=== PATIENT | male | born 1935 | race Caucasian/White ===

== ENCOUNTER 2018-06-09 13:24 | Observation (INO) ==
--- NOTE | 2018-06-09 13:37 | ED ---
HPI General Chief Complaint: Chest Pain Stated Complaint: Chest Pain Complaint Time Seen by Provider: 06/09/18 13:34 Source: patient Mode of arrival: ambulatory Limitations: no limitations History of Present Illness HPI narrative: Primary care physician at the [place] [employer] Dr. Angela Past medical history significant for pacemaker, atrial fibrillation on Coumadin , hip replacement Patient complains of intermittent chest pain, described as a pressure substernal nonradiating, currently at 3 out of 10, last episode has been going on for 45 minutes prior to arrival. MD complaint: Reports chest pain STEMI Alert: No Onset (ago): minute(s) (45) Duration: intermittent Onset: during rest Pain location: Reports substernal Severity: mild Severity scale (1-10): 3 Quality: Reports tightness Pain radiation: Reports none Relieving factors: nothing Exacerbating factors: nothing Treatments prior to arrival chest pain: Reports none Related Data Home Medications Medication Instructions Recorded Confirmed capsaicin 1 applic TOPICAL TID 06/09/18 06/09/18 furosemide 20 mg PO DAILY 06/09/18 06/09/18 isosorbide dinitrate 30 mg PO TID 06/09/18 06/09/18 levothyroxine 50 mcg PO DAILY 06/09/18 06/09/18 lovastatin 40 mg PO DAILY 06/09/18 06/09/18 metoprolol tartrate 50 mg PO BID 06/09/18 06/09/18 niacin [Slo-Niacin] 500 mg PO QAM 06/09/18 06/09/18 nifedipine 30 mg PO DAILY 06/09/18 06/09/18 nitroglycerin 0.4 mg SUBLINGUAL Q5-15M PRN 06/09/18 06/09/18 warfarin 4 mg PO MOWEFR 06/09/18 06/09/18 warfarin 6 mg PO QTUTHSASU 06/09/18 06/09/18 Allergies Allergy/AdvReac Type Severity Reaction Status Date / Time No Known Allergies Allergy Verified 06/09/18 13:32 Review of Systems ROS: all other systems reviewed are negative PMFSH History History Provided By: Family Member Medical History Medical History Atrial fibrillation (Acute) Chest pain (Acute) Pacemaker (Acute) Surgical History Surgical History History of hip replacement (Acute) Social History Social History Substance History: No History of Abuse Second Hand Smoke Exposure: No Smoking Status: Never smoker How Often Do You Have a Drink Containing Alcohol: 2 to 4 times a month Recent Travel in [facility] within the Last 8 Weeks: No Recent Out of Country Travel within the Last 8 Weeks: No Exam Narrative Exam Narrative: GENERAL: Well-nourished, well-developed patient in no apparent distress. SKIN: Warm and dry. HEAD: Atraumatic. Normocephalic. EYES: Pupils equal and round. No scleral icterus. No injection or drainage. ENT: No nasal bleeding or discharge. Mucous membranes pink and moist. NECK: Trachea midline. No JVD. CARDIOVASCULAR: Regular rate and rhythm. no rubs or gallops RESPIRATORY: No accessory muscle use. Clear to auscultation. Breath sounds equal bilaterally. GASTROINTESTINAL: Abdomen soft, non-tender, nondistended. No rebound or guarding MUSCULOSKELETAL: Extremities without clubbing, cyanosis, or edema. No obvious deformities. NEUROLOGICAL: Awake and alert. No obvious cranial nerve deficits. Motor grossly within normal limits. Five out of 5 muscle strength in the arms and legs. Normal speech. PSYCHIATRIC: Appropriate mood and affect; insight and judgment normal. Course Initial Documented Vital Signs Temperature 97.2 F L 06/09/18 13:28 Pulse Rate 68 06/09/18 13:28 Respiratory Rate 16 06/09/18 13:28 Blood Pressure 135/68 06/09/18 13:28 Pulse Oximetry 98 06/09/18 13:28 Last Documented Vital Signs Temperature 97.2 F L 06/09/18 13:28 Pulse Rate 68 06/09/18 13:28 Respiratory Rate 16 06/09/18 13:28 Blood Pressure 135/68 06/09/18 13:28 Pulse Oximetry 96 06/09/18 13:35 Medical Decision Making MDM Narrative Medical decision making narrative: No leukocytosis no anemia no left shift INR 2.9 adequately anticoagulated Normal electrolytes. Normal kidney liver or pancreatic functions Chest x-ray read by radiologist as no acute cardiopulmonary abnormalities identified. There is mild atelectasis at the lung bases Medical Screen Exam Complete: Yes Emergency Medical Condition: Yes Medical Records Medical records reviewed: Yes I reviewed the patient's medical records. Lab Data Lab results reviewed: Yes I reviewed the patient's lab results. Result diagrams: 06/09/18 13:50 06/09/18 13:50 Lab Results 06/09/18 06/09/18 06/09/18 Range/Units 13:50 13:50 13:50 WBC 8.9 (4.0-11.0) th/mm3 RBC 4.56 (4.50-5.90) mil/mm3 Hgb 15.5 (13.0-17.0) gm/dL Hct 44.2 (39.0-51.0) % MCV 96.9 (80.0-100.0) fL MCH 33.9 (27.0-34.0) pg MCHC 35.0 (32.0-36.0) % RDW 15.4 (11.6-17.2) % Plt Count 142 L (150-450) th/mm3 MPV 11.2 H (7.0-11.0) fL Neut % (Auto) 66.1 (16.0-70.0) % Lymph % (Auto) 21.2 (9.0-44.0) % [place] % (Auto) 10.4 H (0.0-8.0) % Eos % (Auto) 1.5 (0.0-4.0) % Baso % (Auto) 0.8 (0.0-2.0) % Neut # (Auto) 5.9 (1.8-7.7) th/mm3 Lymph # (Auto) 1.9 (1.0-4.8) th/mm3 [place] # (Auto) 0.9 (0.0-0.9) th/mm3 Eos # (Auto) 0.1 (0.0-0.4) th/mm3 Baso # (Auto) 0.1 (0.0-0.2) th/mm3 WBC Differential . Differential Comment Auto diff final PT 29.4 H (9.8-11.6) sec INR 2.9 Ratio APTT 42.6 H (23.4-31.7) sec Sodium 139 (136-145) meq/L Potassium 4.4 (3.5-5.1) meq/L Chloride 104 (98-107) meq/L Carbon Dioxide 27.9 (21.0-32.0) meq/L Anion Gap 7 (5-15) meq/L BUN 10 (7-18) mg/dL Creatinine 0.81 (0.60-1.30) mg/dL Estimated GFR Greater than 89 (>89) mL/min Random Glucose 101 (74-106) mg/dL Calcium 8.3 L (8.5-10.1) mg/dL Total Bilirubin 0.7 (0.2-1.0) mg/dL AST 35 (15-37) U/L ALT 28 (12-78) U/L Alkaline Phosphatase 74 (45-117) U/L Total Creatine Kinase 131 (39-308) U/L CK-MB (CK-2) 2.0 (0.5-3.6) ng/mL Troponin I Less than 0.02 L (0.02-0.05) ng/mL Total Protein 7.4 (6.4-8.2) g/dL Albumin 3.9 (3.4-5.0) g/dL Lipase 198 (73-393) U/L Imaging Data Attestation: I personally reviewed and interpreted this imaging study as follows : Radiologist's impression: Chest X-Ray 06/09/18 13:35 CONCLUSION: No acute cardiopulmonary abnormality is identified. There is mild atelectasis at the lung bases. ECG Data EKG Prior to Arrival: No Attestation: I personally reviewed and interpreted this ECG as follows: Prior ECG tracings: not available for review Interpretation: Paced rhythm at 63 bpm, right bundle and left bundle branch block type pattern however this may be secondary to pacemaker. No concordance noted. Discharge Plan Discharge Disposition Patient Disposition: ED Admit(ED Internal Use Only) Discharge Condition Condition: Stable Discharge Details Diagnosis: Chest pain, rule out acute myocardial infarction Physicians Team ED Provider: Chip Leyva Primary Care Provider: [facility] /Orders / Referrals /Forms Prescriptions: No Action lovastatin 40 mg Tablet 40 mg PO DAILY RF: 0 nifedipine 30 mg Tablet Extended Release 30 mg PO DAILY RF: 0 warfarin 4 mg Tablet 4 mg PO MOWEFR RF: 0 isosorbide dinitrate 30 mg Tablet 30 mg PO TID RF: 0 warfarin 6 mg Tablet 6 mg PO QTUTHSASU RF: 0 metoprolol tartrate 50 mg Tablet 50 mg PO BID RF: 0 nitroglycerin 0.4 mg Tablet, Sublingual 0.4 mg SUBLINGUAL Q5-15M PRN (Reason: Pain) RF: 0 capsaicin 0.025 % Cream 1 applic TOPICAL TID RF: 0 furosemide 20 mg Tablet 20 mg PO DAILY RF: 0 levothyroxine 50 mcg Capsule 50 mcg PO DAILY RF: 0 niacin [Slo-Niacin] 500 mg Tablet Extended Release 500 mg PO QAM RF: 0 Status ED Status: With Doctor
[2018-06-09 14:05] LABS: Baso # (Auto) 0.1 th/mm3 (0.0-0.2); Baso % (Auto) 0.8 % (0.0-2.0); Eos # (Auto) 0.1 th/mm3 (0.0-0.4); Eos % (Auto) 1.5 % (0.0-4.0); Hematocrit 44.2 % (39.0-51.0); Hemoglobin 15.5 gm/dL (13.0-17.0); Lymph # (Auto) 1.9 th/mm3 (1.0-4.8); Lymph % (Auto) 21.2 % (9.0-44.0); Mean Corpuscular Hemoglobin 33.9 pg (27.0-34.0); Mean Corpuscular Volume 96.9 fL (80.0-100.0); Mean Platelet Volume 11.2 fL (7.0-11.0); Mono # (Auto) 0.9 th/mm3 (0.0-0.9); Mono % (Auto) 10.4 % (0.0-8.0); Neut # (Auto) 5.9 th/mm3 (1.8-7.7); Neut % (Auto) 66.1 % (16.0-70.0); Platelet Count 142 th/mm3 (150-450); Red Blood Count 4.56 mil/mm3 (4.50-5.90); Red Cell Distribution Width 15.4 % (11.6-17.2); White Blood Count 8.9 th/mm3 (4.0-11.0)
--- NOTE | 2018-06-09 14:10 | XR ---
EXAM DATE: 06/09/2018 2:06 PM EST AGE/SEX: 82 years / Male INDICATIONS: Chest pain. CLINICAL DATA: This is the patient's initial encounter. Patient reports that signs and symptoms have been present for 1 day and indicates a pain score of 3/10. MEDICAL/SURGICAL HISTORY: . Pacemaker. COMPARISON: [facility] [place], 02/18/2016. . FINDINGS: Portable AP view of the chest demonstrates a normal-sized cardiac silhouette. Left chest wall cardiac pacing device is present. EKG lines overlie the patient. Lungs are underinflated with mild atelectas is at the lung bases. No effusion, consolidation, or pneumothorax is visualized. Bones and soft tissu es demonstrate no acute finding. CONCLUSION: No acute cardiopulmonary abnormality is identified. There is mild atelectasis at the lung bases. Electronically signed by: Gui Burkett MD 06/09/2018 2:08 PM EST
[2018-06-09 14:16] LABS: Activated Partial Thrombo Time 42.6 sec (23.4-31.7); INR 2.9 Ratio; Prothrombin Time 29.4 sec (9.8-11.6)
[2018-06-09 14:30] LABS: Alanine Aminotransferase 28 U/L (12-78); Albumin 3.9 g/dL (3.4-5.0); Alkaline Phosphatase 74 U/L (45-117); Anion Gap 7 meq/L (5-15); Blood Urea Nitrogen 10 mg/dL (7-18); Calcium 8.3 mg/dL (8.5-10.1); Carbon Dioxide 27.9 meq/L (21.0-32.0); Chloride 104 meq/L (98-107); Glomerular Filtration Rate Greater Than 89 mL/min (>89); Glucose,Random 101 mg/dL (74-106); Lipase 198 U/L (73-393); Sodium 139 meq/L (136-145); Total Protein 7.4 g/dL (6.4-8.2)
[2018-06-09 14:31] LABS: Aspartate Aminotransferase 35 U/L (15-37); Creatine Kinase 131 U/L (39-308); Potassium 4.4 meq/L (3.5-5.1)
[2018-06-09] MEDS ORDERED: Morphine Inj 4 MG/ML Vial IV.PUSH ONE (15:00)
[2018-06-09 15:43] LABS: Bilirubin,Urine Negative (Negative); Clarity,Urine Clear (Clear); Color,Urine Colorless (Yellw/Straw); Glucose,Urine (UA) Negative (Negative); Leukocyte Esterase,Urine Negative (Negative); Mucus,Urine Few /lpf (Occasional); Nitrite,Urine Negative (Negative); Specific Gravity,Urine 1.004 (1.002-1.035)
[2018-06-09 15:48] LABS: Amphetamine Screen,Urine Neg (Neg); Barbiturate Screen,Urine Neg (Neg); Cannabinoid Screen,Urine Neg (Neg); Cocaine Screen,Urine Neg (Neg)
[2018-06-09] MEDS ORDERED: Acetaminophen 325 MG Tablet PO PRN (15:51)
[2018-06-09] MEDS ORDERED: Bisacodyl 10 MG Supp RECTAL PRN (15:51)
[2018-06-09] MEDS ORDERED: Warfarin Consult Pharmacy OTHER PRN (15:56)
--- NOTE | 2018-06-09 16:11 | P.HP ---
History of Present Illness Service: Hospitalist Primary Care Physician: Physician [place] Chief Complaint: Chest pain History of Present Illness: Mr. Mike is a pleasant 82-year-old male with a history of atrial fibrillation, hypertension, hyperlipidemia who presents to the emergency department on 06/09/2018 due to onset of chest pressure with associated diaphoresis. Patient was doing some light housework at home around 1 PM when he started having tightness of his substernal chest. He also felt some chest discomfort in the left and right side of his chest. He denies any radiation of his chest discomfort to the neck jaw or arms. His pain lasted about 3-4 minutes. He does report that he has been having chest discomfort off and on for a long time. He follows up with Dr. Angela (event sales representative) and apparently is supposed to have a stress test done next week. Patient denies any cough, abdominal pain, nausea or vomiting. He denies any changes in bladder or bowel habits. No fever or chills. Past medical history: Hypertension, hyperlipidemia, atrial fibrillation Past surgical history: Bilateral hip surgery, pacemaker placement Social history: Patient denies using tobacco or illicit drugs. He drinks wine socially. Family history: Mother and sister had dementia. Review of Systems All other systems reviewed negative except as stated in HPI [facility] - History History Provided By: Family Member - Medical History Medical History: Medical History (Last Reviewed 06/09/18 @ 16:03 by Alejandra Douglas DO) Atrial fibrillation Chest pain Pacemaker - Surgical History Surgical History: Surgical History (Last Reviewed 06/09/18 @ 16:03 by Alejandra Douglas DO) History of hip replacement - Tobacco History Second Hand Smoke Exposure: No Smoking Status: Never smoker - Alcohol History How Often Do You Have a Drink Containing Alcohol: 2 to 4 times a month - Substance Use History Substance History: No History of Abuse - Travel History Recent Travel in the [place] Within the Last 8 Weeks: No Recent Travel Out of the Country Within the Last 8 Weeks: No - Immunization History Tetanus Immunization: <5 Years Medications and Allergies Active Medications: Active Medications Acetaminophen (Tylenol) 650 mg PO Q4H PRN PRN Reason: Headache, fever, pain 1-4 Al Hydroxide/Mg Hydroxide (Milk Of Magnesia Liq) 30 ml PO Q12H PRN PRN Reason: Mild Constipation Bisacodyl (Dulcolax Supp) 10 mg RECTAL DAILY PRN PRN Reason: SEVERE CONSITIPATION Lactulose (Lactulose Liq) 30 ml PO DAILY PRN PRN Reason: SEVERE CONSITIPATION Ondansetron HCl (Zofran Inj) 4 mg IV.PUSH Q6H PRN PRN Reason: NAUSEA OR VOMITING Sennosides (Senokot) 17.2 mg PO Q12H PRN PRN Reason: Moderate Constipation Sodium Chloride (Ns Flush) 2 ml IV.FLUSH UNSCH PRN PRN Reason: FLUSH AFTER USING IV ACCESS Sodium Chloride (Ns Flush) 2 ml IV.FLUSH BID CAROLYN Sodium Chloride (Ns Flush) 2 ml IV.FLUSH PRN PRN PRN Reason: FLUSH AFTER USING IV ACCESS Allergies Allergy/AdvReac Type Severity Reaction Status Date / Time No Known Allergies Allergy Verified 06/09/18 13:32 Home Medications Medication Instructions Recorded Confirmed Type capsaicin 1 applic TOPICAL TID 06/09/18 06/09/18 History furosemide 20 mg PO DAILY 06/09/18 06/09/18 History isosorbide dinitrate 30 mg PO TID 06/09/18 06/09/18 History levothyroxine 50 mcg PO DAILY 06/09/18 06/09/18 History lovastatin 40 mg PO DAILY 06/09/18 06/09/18 History metoprolol tartrate 50 mg PO BID 06/09/18 06/09/18 History niacin [Slo-Niacin] 500 mg PO QAM 06/09/18 06/09/18 History nifedipine 30 mg PO DAILY 06/09/18 06/09/18 History nitroglycerin 0.4 mg SUBLINGUAL Q5-15M PRN 06/09/18 06/09/18 History warfarin 4 mg PO MOWEFR 06/09/18 06/09/18 History warfarin 6 mg PO QTUTHSASU 06/09/18 06/09/18 History Exam Vital signs: Vital Signs 06/09/18 13:28 06/09/18 13:35 Temperature 97.2 F L Pulse Rate 68 Respiratory Rate 16 Blood Pressure 135/68 Pulse Oximetry 98 96 Intake & Output 06/08/18 06/09/18 06/09/18 18:59 06:59 18:59 Weight 74.843 kg Narrative: GENERAL: This is a well-nourished, well-developed patient, in no apparent distress. SKIN: No rashes, ecchymoses or lesions. Warm and dry. HEAD: Atraumatic. Normocephalic. No temporal or scalp tenderness. EYES: Pupils equal round and reactive. No injection or drainage. ENT: Nose without bleeding, purulent drainage or septal hematoma. Airway patent. NECK: Trachea midline. No lymphadenopathy. Supple, nontender, no meningeal signs. CARDIOVASCULAR: Bradycardic, regular rhythm without murmurs, gallops, or rubs. No JVD. RESPIRATORY: Clear to auscultation. Breath sounds equal bilaterally. No wheezes , rales, or rhonchi. GASTROINTESTINAL: Abdomen soft, non-tender, nondistended. No guarding. MUSCULOSKELETAL: Extremities without clubbing, cyanosis. Lower extremity trace edema. NEUROLOGICAL: Awake and alert. Cranial nerves II through XII intact. No focal neurological deficits. Normal speech. Results - Labs CBC & Chem 7: 06/09/18 13:50 06/09/18 13:50 Labs: Laboratory Results - last 24 hr 06/09/18 06/09/18 06/09/18 13:50 13:50 13:50 WBC 8.9 RBC 4.56 Hgb 15.5 Hct 44.2 MCV 96.9 MCH 33.9 MCHC 35.0 RDW 15.4 Plt Count 142 L MPV 11.2 H Neut % (Auto) 66.1 Lymph % (Auto) 21.2 [place] % (Auto) 10.4 H Eos % (Auto) 1.5 Baso % (Auto) 0.8 Neut # (Auto) 5.9 Lymph # (Auto) 1.9 [place] # (Auto) 0.9 Eos # (Auto) 0.1 Baso # (Auto) 0.1 WBC Differential . Differential Comment Auto diff final PT 29.4 H INR 2.9 APTT 42.6 H Sodium Potassium Chloride Carbon Dioxide Anion Gap BUN Creatinine Estimated GFR Random Glucose Calcium Total Bilirubin AST ALT Alkaline Phosphatase Total Creatine Kinase CK-MB (CK-2) Troponin I B-Natriuretic Peptide 61 Total Protein Albumin Lipase Urine Color Urine Clarity Urine pH Ur Specific [place] Urine Protein Urine Glucose (UA) Urine Ketones Urine Occult Blood Urine Nitrate Urine Bilirubin Urine Urobilinogen Ur Leukocyte Esterase Urine RBC Urine WBC Urine Mucus Micro UA Comment Ur Microscopic Review Urine Culture Comments 06/09/18 06/09/18 13:50 15:00 WBC RBC Hgb Hct MCV MCH MCHC RDW Plt Count MPV Neut % (Auto) Lymph % (Auto) [place] % (Auto) Eos % (Auto) Baso % (Auto) Neut # (Auto) Lymph # (Auto) [place] # (Auto) Eos # (Auto) Baso # (Auto) WBC Differential Differential Comment PT INR APTT Sodium 139 Potassium 4.4 Chloride 104 Carbon Dioxide 27.9 Anion Gap 7 BUN 10 Creatinine 0.81 Estimated GFR Greater than 89 Random Glucose 101 Calcium 8.3 L Total Bilirubin 0.7 AST 35 ALT 28 Alkaline Phosphatase 74 Total Creatine Kinase 131 CK-MB (CK-2) 2.0 Troponin I Less than 0.02 L B-Natriuretic Peptide Total Protein 7.4 Albumin 3.9 Lipase 198 Urine Color Colorless Urine Clarity Clear Urine pH 6.0 Ur Specific [place] 1.004 Urine Protein Negative Urine Glucose (UA) Negative Urine Ketones Negative Urine Occult Blood Negative Urine Nitrate Negative Urine Bilirubin Negative Urine Urobilinogen Less than 2 Ur Leukocyte Esterase Negative Urine RBC 1 Urine WBC Less than 1 Urine Mucus Few H Micro UA Comment Culture not ind Ur Microscopic Review Not Reportable Urine Culture Comments Culture not ind - Imaging Impressions Chest X-Ray 06/09/18 13:35 CONCLUSION: No acute cardiopulmonary abnormality is identified. There is mild atelectasis at the lung bases. Caprini VTE Risk Assessment Caprini VTE Risk Assessment: Moderate/High Risk (score >= 2) Caprini Risk Assessment Model: Point Value = 1 Point Value = 2 Point Value = 3 Point Value = 5 Age 41-60 Minor surgery BMI > 25 kg/m2 Swollen legs Varicose veins or History of unexplained or recurrent spontaneous Oral contraceptives or hormone replacement Sepsis (< 1 month) Serious lung disease, including pneumonia (< 1 month) Abnormal pulmonary function Acute myocardial infarction Congestive heart failure (< 1 month) History of inflammatory bowel disease Medical patient at bed rest Age 61-74 Arthroscopic surgery Major open surgery (> 45 min) Laparoscopic surgery (> 45 min) Malignancy Confined to bed (> 72 hours) Immobilizing plaster cast Central venous access Age >= 75 History of VTE Family history of VTE Factor V Leiden Prothrombin [id number] Lupus anticoagulant Anticardiolipin antibodies Elevated serum homocysteine Heparin-induced thrombocytopenia Other congenital or acquired thrombophilia Stroke (< 1 month) Elective arthroplasty Hip, pelvis, or leg fracture Acute spinal cord injury (< 1 month) Prophylaxis Regimen: Total Risk Factor Score Risk Level Prophylaxis Regimen 0-1 Low Early ambulation 2 Moderate Order ONE of the following: *Sequential Compression Device (SCD) *Heparin 5000 units SQ BID 3-4 Higher Order ONE of the following medications: *Heparin 5000 units SQ TID *Enoxaparin/Lovenox 40 mg SQ daily (WT < 150 kg, CrCl > 30 mL/min) *Enoxaparin/Lovenox 30 mg SQ daily (WT < 150 kg, CrCl > 10-29 mL/min) *Enoxaparin/Lovenox 30 mg SQ BID (WT < 150 kg, CrCl > 30 mL/min) AND/OR *Sequential Compression Device (SCD) 5 or more Highest Order ONE of the following medications: *Heparin 5000 units SQ TID (Preferred with Epidurals) *Enoxaparin/Lovenox 40 mg SQ daily (WT < 150 kg, CrCl > 30 mL/min) *Enoxaparin/Lovenox 30 mg SQ daily (WT < 150 kg, CrCl > 10-29 mL/min) *Enoxaparin/Lovenox 30 mg SQ BID (WT < 150 kg, CrCl > 30 mL/min) AND *Sequential Compression Device (SCD) Assessment and Plan - Plan Mr. Mike is a pleasant 82-year-old male with a history of hypertension, hyperlipidemia, atrial fibrillation status post pacemaker placement who presents to the emergency department on 06/09/2018 due to onset of substernal chest pressure with radiation to left and right side of his chest as well as diaphoresis. His symptoms started around 1 PM on the day of presentation. Nitroglycerin helped some with his chest discomfort. Chest pain Patient has some typical features including substernal chest pressure, improved with nitroglycerin and diaphoresis. We will obtain troponins and EKGs every 4 hours x2 Consult cardiology for further evaluation. Per patient, he was supposed to have a stress test done next week. If patient remains chest pain-free and troponins are negative, we may consider Lexiscan. If workup is negative, consider isosorbide mononitrate. Hypertension Hyperlipidemia Atrial fibrillation Continue metoprolol 25 mg twice daily, statin. Continue warfarin. INR 2.9 today. Continue nifedipine 30 mg daily. If okay with cardiology, consider switching warfarin to direct acting oral anticoagulant such as apixaban. Mild lower ext edema -Continue Lasix 20mg Qday. -BNP 64 - no clinical evidence of heart failure. Full code. Warfarin with INR 2.9.
[2018-06-09 16:36] LABS: Opiate Screen,Urine Neg (Neg)
[2018-06-09] MEDS: Metoprolol Tartrate 50 MG Tablet PO SCH (20:07)
[2018-06-10 01:54] LABS: INR 2.5 Ratio; Prothrombin Time 25.4 sec (9.8-11.6)
[2018-06-10] MEDS: Levothyroxine 50 MCG Tablet PO SCH (06:16)
[2018-06-10] MEDS: Furosemide 20 MG Tablet PO SCH (08:36)
--- NOTE | 2018-06-10 10:21 | ECG ---
Date Performed: 06/09/2018 Time Performed: 13:39:45 PTAGE: 82 years EK% ATRIAL PACING RIGHT AXIS DEVIATION RIGHT BUNDLE BRANCH BLOCK Compared to previous trac ing, right bundle branch block is new. ABNORMAL ECG PREVIOUS TRACING : 02/15/2016 16.50 DOCTOR: Keith Chavira Interpretating Date/Time 06/10/2018 10:20:17
[2018-06-10] MEDS: Metoprolol Tartrate 50 MG Tablet PO SCH ×3 (10:32→20:17)
--- NOTE | 2018-06-10 14:26 | P.PN ---
Subjective Interval history: Nursing denies acute changes overnight. Patient himself reports having some chest pains earlier this morning on an empty stomach. Physical Exam Vital signs: Vital Signs 06/09/18 16:00 06/09/18 20:00 06/10/18 00:00 Temperature 97.8 F 97.8 F 98.3 F Pulse Rate 63 62 69 Respiratory Rate 18 16 16 Blood Pressure 168/76 H 131/62 134/66 Pulse Oximetry 97 96 97 06/10/18 04:00 06/10/18 08:00 06/10/18 10:04 Temperature 97.6 F 95.6 F L Pulse Rate 65 65 59 L Respiratory Rate 15 14 Blood Pressure 172/68 H 182/86 H Pulse Oximetry 97 99 06/10/18 10:30 06/10/18 12:00 Temperature 97.8 F Pulse Rate 63 60 Respiratory Rate 14 Blood Pressure 176/86 H 161/80 H Pulse Oximetry 98 Intake & Output 06/09/18 06/10/18 06/10/18 18:59 06:59 18:59 Weight 73.936 kg Other: # Voids 1 Date of Last Bowel Movement 06/09/18 06/09/18 Weight On Admission 73.936 kg Narrative: Clear lungs bilaterally, unlabored breathing Heart sounds regular rate and rhythm, no murmurs Sitting up in bed, eating No sternal tenderness to palpation No lower extremity edema Results - Labs CBC & Chem 7: 06/09/18 13:50 06/09/18 13:50 Laboratory Results - last 24 hr 06/09/18 06/09/18 06/09/18 13:50 13:50 15:00 PT INR Sodium 139 Potassium 4.4 Chloride 104 Carbon Dioxide 27.9 Anion Gap 7 BUN 10 Creatinine 0.81 Estimated GFR Greater than 89 Random Glucose 101 Calcium 8.3 L Total Bilirubin 0.7 AST 35 ALT 28 Alkaline Phosphatase 74 Total Creatine Kinase 131 CK-MB (CK-2) 2.0 Troponin I Less than 0.02 L B-Natriuretic Peptide 61 Total Protein 7.4 Albumin 3.9 Lipase 198 Urine Color Urine Clarity Urine pH Ur Specific [place] Urine Protein Urine Glucose (UA) Urine Ketones Urine Occult Blood Urine Nitrate Urine Bilirubin Urine Urobilinogen Ur Leukocyte Esterase Urine RBC Urine WBC Urine Mucus Micro UA Comment Ur Microscopic Review Urine Culture Comments Urine Opiates Screen Neg Ur Barbiturates Screen Neg Ur Amphetamines Screen Neg U Benzodiazepines Scrn Neg Urine Cocaine Screen Neg U Cannabinoids Screen Neg 06/09/18 06/09/18 06/10/18 15:00 19:59 01:34 PT INR Sodium Potassium Chloride Carbon Dioxide Anion Gap BUN Creatinine Estimated GFR Random Glucose Calcium Total Bilirubin AST ALT Alkaline Phosphatase Total Creatine Kinase CK-MB (CK-2) Troponin I Less than 0.02 L Less than 0.02 L B-Natriuretic Peptide Total Protein Albumin Lipase Urine Color Colorless Urine Clarity Clear Urine pH 6.0 Ur Specific [place] 1.004 Urine Protein Negative Urine Glucose (UA) Negative Urine Ketones Negative Urine Occult Blood Negative Urine Nitrate Negative Urine Bilirubin Negative Urine Urobilinogen Less than 2 Ur Leukocyte Esterase Negative Urine RBC 1 Urine WBC Less than 1 Urine Mucus Few H Micro UA Comment Culture not ind Ur Microscopic Review Not Reportable Urine Culture Comments Culture not ind Urine Opiates Screen Ur Barbiturates Screen Ur Amphetamines Screen U Benzodiazepines Scrn Urine Cocaine Screen U Cannabinoids Screen 06/10/18 01:34 PT 25.4 H INR 2.5 Sodium Potassium Chloride Carbon Dioxide Anion Gap BUN Creatinine Estimated GFR Random Glucose Calcium Total Bilirubin AST ALT Alkaline Phosphatase Total Creatine Kinase CK-MB (CK-2) Troponin I B-Natriuretic Peptide Total Protein Albumin Lipase Urine Color Urine Clarity Urine pH Ur Specific [place] Urine Protein Urine Glucose (UA) Urine Ketones Urine Occult Blood Urine Nitrate Urine Bilirubin Urine Urobilinogen Ur Leukocyte Esterase Urine RBC Urine WBC Urine Mucus Micro UA Comment Ur Microscopic Review Urine Culture Comments Urine Opiates Screen Ur Barbiturates Screen Ur Amphetamines Screen U Benzodiazepines Scrn Urine Cocaine Screen U Cannabinoids Screen Assessment and Plan - Plan Mr. Mike is a pleasant 82-year-old male with a history of hypertension, hyperlipidemia, atrial fibrillation status post pacemaker placement who presents to the emergency department on 06/09/2018 due to onset of substernal chest pressure with radiation to left and right side of his chest as well as diaphoresis. His symptoms started around 1 PM on the day of presentation. Nitroglycerin helped some with his chest discomfort. Chest pain Troponins so far have been negative, EKGs which I independently reviewed have been negative, pending cardiology consultation Ordering echocardiogram, maintain on telemetry Per patient, he was supposed to have a stress test done next week. -Continue home BiDil Pt already anticoagulated on warfarin Hypertension Hyperlipidemia Atrial fibrillation Continue metoprolol 25 mg twice daily, statin. Continue warfarin. Continue nifedipine 30 mg daily. If okay with cardiology, consider switching warfarin to direct acting oral anticoagulant such as apixaban. Mild lower ext edema -Continue Lasix 20mg Qday. -BNP 64 - no clinical evidence of heart failure. Full code. Warfarin.
[2018-06-10] MEDS ORDERED: Heparin 10,000 UNITS/10 ML Vial (for IV use) IV.PUSH STA (14:30)
[2018-06-10] MEDS ORDERED: Heparin Drip 25,000 UNIT/250 ML BAG IV.CONT PRN ×2 (14:30→22:16)
--- NOTE | 2018-06-10 18:13 | MB ---
cc: Angel Hamilton MD DATE: 06/10/2018 TECHNICAL SUPPORT ANALYST: Nelsy Angela MD PRIMARY CARE PHYSICIAN: [facility] REASON FOR CONSULTATION: I was asked to evaluate the patient with chest pain syndrome. HISTORY OF PRESENT ILLNESS: Pedro Mike is a very pleasant 82-year-old gentleman with a past medical history significant for hypertension, hypercholesterolemia, atrial fibrillation, coronary artery disease. He reports having recurrent episodes of substernal chest pain with exertion and at rest. Over the past several days, he has had to use nitroglycerin sublingual for chest pain relief. Yesterday while working around the house, he developed chest tightness across his upper chest that was associated with some shortness of breath. Due to his recurrent severe symptoms, he sought emergency room evaluation. MEDICATIONS PRIOR TO ADMISSION: 1. Capsaicin. 2. Lasix. 3. Imdur. 4. Levothyroxine. 5. Lovastatin. 6. Metoprolol. 7. Niacin. 8. Nifedipine. 9. Nitroglycerin. 10. Warfarin. ALLERGIES: NO KNOWN DRUG ALLERGIES. PAST MEDICAL HISTORY: As above. 1. Hypertension. 2. Hyperlipidemia. 3. Atrial fibrillation, status post pacemaker. PAST SURGICAL HISTORY: 1. Status post pacemaker insertion. 2. Status post bilateral hip replacement. SOCIAL HISTORY: He does not smoke. He drinks alcohol socially. No illicit drug use. FAMILY HISTORY: No family history of premature coronary artery disease. REVIEW OF SYSTEMS: As above. A 12-point review of systems reviewed and noted. No recent fever, chills, cough and sputum production. No recent gastrointestinal, genitourinary or neurologic symptoms. PHYSICAL EXAMINATION: VITAL SIGNS: Temperature 95.6, pulse 65, respirations 14, blood pressure 182/86. HEENT: He is anicteric. PERRLA. No xanthelasma. NECK: Slight JVD. No carotid bruits. LUNGS: Clear to auscultation. HEART: Regular rate and rhythm, 2/6 systolic murmur at left lower sternal border. ABDOMEN: Soft and nontender. EXTREMITIES: Without peripheral edema. LABORATORY DATA: WBC 8.9, hemoglobin 15.5, platelet count 142,000. Sodium 139, potassium 4.4, creatinine 0.81, BUN 10. Troponin less than 0.02 x 3. ECG: Atrially paced rhythm, right bundle-branch block, nonspecific ST-T abnormalities. IMPRESSION: 1. Chest pain syndrome with typical and atypical features for angina. 2. History of known coronary artery disease. 3. Troponins negative for acute coronary syndrome. 4. Status post pacemaker. 5. History of atrial fibrillation. 6. Hypertension. 7. Hypercholesterolemia. PLAN: 1. Nitroglycerin paste 1 inch every 6 hours. 2. Continue IV heparin. 3. Increase Procardia-XL 60 mg daily. 4. Further therapy per Dr. Angela. 5. Dr. Angela will return in a.m. MD QUINCY Hutchinson/benjamin , 04:07 PM , 04:14 PM
[2018-06-10 18:32] LABS: Activated Partial Thrombo Time 40.4 sec (23.4-31.7); INR 2.3 Ratio; Prothrombin Time 23.4 sec (9.8-11.6)
[2018-06-10] MEDS ORDERED: CAPSAICIN TOPICAL SCH (21:00)
[2018-06-11 05:40] LABS: INR 1.9 Ratio; Prothrombin Time 19.6 sec (9.8-11.6)
[2018-06-11] MEDS: Levothyroxine 50 MCG Tablet PO SCH (05:45)
[2018-06-11] MEDS: Metoprolol Tartrate 50 MG Tablet PO SCH (08:02)
[2018-06-11] MEDS: Furosemide 20 MG Tablet PO SCH (08:02)
--- NOTE | 2018-06-11 10:41 | ECHRPT ---
Indication: HEART FILURE CONCLUSIONS Technically extremely difficult study, making assessment of left ventricular function and wall motio n very suboptimal. Left ventricular systolic function may be low normal with an estimated ejection fractio n of 50%. Regional wall motion abnormalities cannot be excluded on the basis of this study. Normal left ventricular size. Wall thickness is normal. Trileaflet aortic valve. No aortic valve stenosis or regurgitation. Mild to moderate aortic valve s clerosis is present. There is trace tricuspid valve regurgitation. The estimated pulmonary arterial pressure is 29 mmHg. BP: / HR: Rhythm: MEASUREMENTS (Male / Female) Normal Values Technical Quality: 2D ECHO LV Diastolic Diameter PLAX 4.7 cm 4.2 - 5.9 / 3.9 - 5.3 cm LV Systolic Diameter PLAX 3.8 cm IVS Diastolic Thickness 1.0 cm 0.6 - 1.0 / 0.6 - 0.9 cm LVPW Diastolic Thickness 1.0 cm 0.6 - 1.0 / 0.6 - 0.9 cm LV Relative Wall Thickness 0.4 RV Internal Dim ED PLAX 3.3 cm LVOT Diameter 2.0 cm Aortic Root Diameter 2.8 cm DOPPLER AV Peak Velocity 165.0 cm/s AV Peak Gradient 10.9 mmHg AV Mean Gradient 6.0 mmHg AV Velocity Time Integral 33.0 cm LVOT Peak Velocity 65.2 cm/s LVOT Peak Gradient 1.7 mmHg AV Area Cont Eq pk 1.2 cm Mitral E Point Velocity 39.0 cm/s Mitral A Point Velocity 82.9 cm/s Mitral E to A Ratio 0.5 LV E' Lateral Velocity 4.5 cm/s Mitral E to LV E' Lateral Ratio 8.7 LV E' Septal Velocity 5.1 cm/s Mitral E to LV E' Septal Ratio 7.7 TR Peak Velocity 216.0 cm/s TR Peak Gradient 18.7 mmHg Right Atrial Pressure 10.0 mmHg Pulmonary Artery Systolic Pressu 28.7 mmHg Right Ventricular Systolic Press 28.7 mmHg PV Peak Velocity 52.3 cm/s PV Peak Gradient 1.1 mmHg FINDINGS LEFT VENTRICLE Technically extremely difficult study, making assessment of left ventricular function and wall motio n very suboptimal. Left ventricular systolic function may be low normal with an estimated ejection fractio n of 50%. Regional wall motion abnormalities cannot be excluded on the basis of this study. Normal left ventricular size. Wall thickness is normal. RIGHT VENTRICLE Normal right ventricular size and systolic function. LEFT ATRIUM The left atrial size is normal. RIGHT ATRIUM The right atrial size is normal. ATRIAL SEPTUM The interatrial septum not well visualized. AORTA The aortic root and proximal ascending aorta are not well visualized. MITRAL VALVE Trace mitral valve regurgitation. AORTIC VALVE Trileaflet aortic valve. No aortic valve stenosis or regurgitation. Mild to moderate aortic valve s clerosis is present. TRICUSPID VALVE There is trace tricuspid valve regurgitation. The estimated pulmonary arterial pressure is 29 mmHg. PULMONARY VALVE The pulmonary valve is not well visualized. VESSELS The inferior vena cava was not well visualized. PERICARDIUM No pericardial effusion. Kev Galicia MD (Electronically Signed) Final Date:11 June 2018 10:39
[2018-06-11] MEDS ORDERED: Aspirin 325 MG Tablet PO SCH (12:00)
== END 2018-06-11 12:37 | disposition home or self-care (01) ==
LOC: NEPC 13:24 → NEDA 13:24 → NEPGCP 17:08
PROVIDERS: ADMIT Hospitalist; ATTEND Hospitalist